=== PATIENT | male | born 1995 | race Two or more races ===

== ENCOUNTER 2024-11-09 08:51 | Emergency (ER) | payer MEDICAID ==
[~2024-11-09] VITALS: Ht 185.4 cm; Wt 121.2 kg
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
[2024-11-09 09:45] VITALS: BP 140/82; PULSE 73; RESP 17; TEMP 98.3; O2SAT 96
[2024-11-09] MEDS: KETOROLAC TROMETH 30 MG/ML 1ML VIAL IM ONE (10:32)
--- NOTE | 2024-11-09 10:45 | ED.PDOC ---
Musculoskeletal HPI Comments 29-year-old male with no pertinent past medical history, presents to ED for right 3rd finger pain x1 day, status post smashing his finger onto the car door. Patient currently rates his pain as 10/10 in severity. He reports taking Tylenol with some relief of symptoms. The pain is described as a throbbing sensation he states that it radiates to his elbow. Patient also reports some numbness. Pain is worse with movement. Chief Complaint: Upper Extremity Time Seen by MD: 09:05 Primary Care Provider: NONE Reviewed Notes: Nurses Notes, Medications, Allergies Allergies: Coded Allergies: NO KNOWN ALLERGIES (Unverified , 11/09/24) Mode of Arrival: Ambulatory Past Medical History PAST MEDICAL HISTORY: Denies Surgical History: Denies all surgeries Family History Family History: Reviewed,noncontributory to illness Social History Smoker: Non-Smoker Alcohol: Denies ETOH Use Drugs: Denies Drug Use Constitutional: denies: chills, diaphoresis, fatigue, fever, malaise, sweats, weakness, others EENTM: denies: blurred vision, double vision, ear bleeding, ear discharge, ear drainage, ear pain, ear ringing, eye pain, eye redness, hearing loss, mouth pain, mouth swelling, nasal discharge, nose bleeding, nose congestion, nose pain, photophobia, tearing, throat pain, throat swelling, voice changes, others Respiratory: denies: cough, hemoptysis, orthopnea, SOB at rest, shortness of breath, SOB with excertion, stridor, wheezing, others Cardiovascular: denies: chest pain, dizzy spells, diaphoresis, Dyspnea on exertion, edema, irregular heart beat, left arm pain, lightheadedness, palpita tions, PND, syncope, others Gastrointestinal: denies: abdomen distended, abdominal pain, blood streaked suresh wels, constipated, diarrhea, dysphagia, difficulty swallowing, hematemesis, melena, nausea, poor appetite, poor fluid intake, rectal bleeding, rectal pain, vomiting, others Genitourinary: denies: burning, dysuria, flank pain, frequency, hematuria, incontinence, penile discharge, penile sore, pain, testicle pain, testicle swelling, urgency, others Neurological: denies: dizziness, fainting, headache, left sided numbness, left sided weakness, numbness, paresthesia, pre-existing deficit, right sided numbness, right sided weakness, seizure, speech problems, tingling, tremors, weakness, others Musculoskeletal: reports: joint pain; denies: back pain, gout, joint swelling, muscle pain, muscle stiffness, neck pain, others Integumetry: denies: bruises, change in color, change in hair/nails, dryness, laceration, lesions, lumps, rash, wounds, others Allergic/Immunocompromised: denies: Difficulty Healing, Frequent Infections, Hives, Itching, others Hematologic/Lymphatic: denies: anemia, blood clots, easy bleeding, easy bruising, swollen glands, others Endocrine: denies: excessive hunger, excessive sweating, excessive thirst, excessive urination, flushing, intolerance to cold, intolerance to heat, unexplained weight gain, unexplained weight loss, others Psychiatric: denies: anxiety, bipolar disorder, depression, hopeless, panic dis order, schizophrenia, sleepless, suicidal, others All Other Systems: Reviewed and Negative Physical Exam General Appearance: No Apparent Distress, Normal HEENT: Normal ENT Inspection, Pharynx Normal, TMs Normal Neck: Full Range of Motion, Non-Tender, Normal, Normal Inspection Respiratory: Chest Non-Tender, Lungs Clear, No Accessory Muscle Use, No Respiratory Distress, Normal Breath Sounds Cardiovascular: No Edema, No JVD, No Murmur, No Gallop, Normal Peripheral Pulses, Regular Rate/Rhythm Breast Exam: Deferred Gastrointestinal: No Organomegaly, Non Tender, No Pulsatile Mass, Normal Bowel Sounds, Soft Genitalia: Deferred Pelvic: Deferred Rectal: Deferred Extremities: No calf tenderness, Normal capillary refill, Normal inspection, Normal range of motion, Non-tender, No pedal edema Musculoskeletal : Location: Right Extremity Location: Finger 3 (Tenderness to palpation to distal aspect of the right 3rd digit. Mild swelling noted. Normal capillary refill. There is a mild subungual hematoma noted.) Apperance: Normal Neurologic: Alert, sewage plant attendant II-XII nml as Tested, No Motor Deficits, Normal Affect, Normal Mood, No Sensory Deficits Cerebellar Function: Normal Reflexes: Normal Skin: Dry, Normal Color, Warm Lymphatic: No Adenopathy Was a procedure done? Was a procedure done?: No Differential Diagnosis EXT Differential Diagnosis: Fracture, Sprain, Dislocation, Neurovascular injury, Arthritis X-Ray, Labs, Meds, VS Vital Signs Date Time Temp Pulse Resp B/P (MAP) Pulse Ox O2 Delivery O2 Flow Rate FiO2 11/09/24 09:45 73 17 96 Room Air* 0 21 11/09/24 09:45 98.3 76 17 140/82 (101) 96 98.3 11/09/24 08:56 98.6 78 16 119/65 (83) 100 Current Medications Medications (Trade) Dose Ordered Sig/Beatriz Route Start Time Stop Time Status Last Admin Ketorolac Tromethamine (Toradol Injection) 30 mg ONCE ONCE IM 11/09/24 10:30 11/09/24 10:31 DC 11/09/24 10:32 X-Ray, Labs, Meds, VS Comment Finger XR FINDINGS/IMPRESSION: Possible nondisplaced fracture of the 3rd proximal phalanx versus nutrient f oramen. Correlate with point tenderness. MDM: Patient with history as above presented with finger pain. History obtained from patient. Patient was nontoxic, stable, afebrile, ambulatory, no acute distress. Exam as above. Independently reviewed imaging. Right 3rd finger x-ray showed a possible proximal phalanx fracture. Reviewed external records. All findings were discussed with the patient. Differential diagnosis considered. Overall presentation is consistent with finger fracture. Low suspicion for dislocation, neurovascular injury. Patient was treated with Toradol with improvement in symptoms. Patient was placed in a finger frog splint. Patient was advised to follow up with PCP for further evaluation of fracture. Advised patient to rest, ice, compress, elevate the affected extremity. Patient was reevaluated and vital signs were reviewed. Consideration was given for admission, but the patient was stable for outpatient management. Disposition: Discussed the need to follow up diagnostics, including incidental findings. Discharged the patient with instructions to obtain outpatient follow up in 1-2 days of today's symptoms and findings, with strict return precautions if patient develops new or worsening symptoms. This medical document was created using the [employer] dictation system. Although this document has been carefully reviewed, there may still be some phonetic and typographical errors, which are due to imperfections of the software program, and do not reflect any compromise in the patient's medical care. Time of 1ST Reevaluation: 10:44 Reevaluation 1ST: Improved Patient Education/Counseling: Diagnosis, Treatment, Prognosis, Need For Follow Up Family Education/Counseling: No Family Present Departure 1 Departure Time of Disposition: 10:44 Impression: Primary Impression: Finger fracture, right Qualified Codes: S62.642A - Nondisplaced fracture of proximal phalanx of right middle finger, initial encounter for closed fracture Disposition: 01 HOME / SELF CARE / HOMELESS Condition: Fair Critical Care Note Critical Care Time?: No Stability Stability form required: No Heart Score Heart Score: Heart Score Response (Comments) Value History N/A 0 EKG N/A 0 Age N/A 0 Risk Factors N/A 0 Troponin N/A 0 Total 0 LOPEZ YUAN PAC Nov 09, 2024 10:45
[2024-11-09] MEDS ORDERED: IBUP1TAB5 PO (10:50)
== END 2024-11-09 10:48 | disposition home or self-care (01) ==
LOC: ER 08:51
DX: S62.642A Nondisplaced fracture of proximal phalanx of right middle finger, initial encounter for closed fracture (principal); X58.XXXA Exposure to other specified factors, initial encounter; Y93.89 Activity, other specified; Y92.89 Other specified places as the place of occurrence of the external cause; Y99.8 Other external cause status
CPT/HCPCS: 29130; 73140; 96372; 99283; J1885

== ENCOUNTER 2025-05-26 23:56 | Emergency (ER) | payer MEDICAID ==
[~2025-05-26] VITALS: Ht 188 cm; Wt 113.0 kg
[~2025-05-26 23:56] MED LIST: IBUP1TAB5 PO
[2025-05-27 00:49] VITALS: TEMP 98.6
[2025-05-27] MEDS: KETOROLAC TROMETH 30 MG/ML 1ML VIAL IM ONE (01:06)
[2025-05-27] MEDS ORDERED: CYCL-837 PO (03:01)
[2025-05-27] MEDS ORDERED: IBUP-1455 PO (03:01)
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
[2025-05-27 04:00] VITALS: BP 132/72; PULSE 99; RESP 16
[2025-05-27 04:09] VITALS: O2SAT 99
== END 2025-05-27 04:11 | disposition home or self-care (01) ==
LOC: EDBD 23:56 → ER 23:56
DX: S50.311A Abrasion of right elbow, initial encounter (principal); S50.312A Abrasion of left elbow, initial encounter; S09.90XA Unspecified injury of head, initial encounter; Y08.89XA Assault by other specified means, initial encounter; Y93.89 Activity, other specified; Y92.89 Other specified places as the place of occurrence of the external cause; Y99.8 Other external cause status
CPT/HCPCS: 70450; 96372; 99285; J1885